=== PATIENT | male | born 1980 | race American Indian/Alaskan Native ===

== ENCOUNTER 2019-01-18 11:39 | Emergency (ER) | payer SELFPAY ==
[2019-01-18 11:59] VITALS: BP 118/69
--- NOTE | 2019-01-18 14:23 | Emergency Department Report ---
Minor Respiratory - HPI Chief Complaint: Upper Respiratory Infection Stated Complaint: HEAD COLD Time Seen by Provider: 01/18/19 14:19 Duration: 2 Days Pain Location: Throat Severity: moderate Minor Respiratory: Yes Sore Throat, Yes Able to Tolerate Fluids, Yes Cough, No Rhinorrhea, No Ear Pain, No Sick Contacts, No Hemoptysis, No Chest Pain, No Shortness of Breath, No Fever Other History: Patient has a history of Asthma and reports a flare-up that started two days ago. He only uses an inhaler for rescue, however he is currently out of an inhaler. He attributes the change of weather and dust to his exacerbation ED Review of Systems ROS: Stated complaint: HEAD COLD Other details as noted in HPI Constitutional: denies: chills, fever Eyes: denies: eye pain, eye discharge, vision change ENT: denies: ear pain, throat pain, hearing loss, epistaxis, congestion Respiratory: cough. denies: orthopnea, shortness of breath, SOB with exertion, SOB at rest, stridor, wheezing Cardiovascular: denies: chest pain, palpitations, dyspnea on exertion, orthopnea, edema, syncope, paroxysmal nocturnal dyspnea Endocrine: no symptoms reported Gastrointestinal: denies: abdominal pain, nausea, diarrhea Genitourinary: denies: urgency, dysuria Musculoskeletal: denies: back pain, joint swelling, arthralgia Skin: denies: rash, lesions Neurological: denies: headache, weakness, paresthesias Psychiatric: denies: anxiety, depression Hematological/Lymphatic: denies: easy bleeding, easy bruising ED Past Medical Hx - Past Medical History Previous Medical History?: Yes Hx Asthma: Yes - Surgical History Past Surgical History?: No - Social History Smoking Status: Never Smoker Substance Use Type: None - Medications Home Medications: Home Medications Medication Instructions Recorded Confirmed Last Taken Type ALBUTEROL Inhaler (OR & NICU) 1 puff IH QID #1 inha 01/18/19 Unknown Rx [Proair] Fexofenadine HCl [Rosa Isela Allergy] 180 mg PO DAILY #15 tablet 01/18/19 Unknown Rx guaiFENesin [Mucus Relief ER] 1,200 mg PO BID #20 tab.er.12h 01/18/19 Unknown Rx predniSONE [Deltasone] 50 mg PO QDAY #5 tab 01/18/19 Unknown Rx Minor Respiratory Exam - Exam General: Vital signs noted. No distress. Alert and acting appropriately. HEENT: Yes Moist Mucous Membranes, Yes Rhinorrhea, No Pharyngeal Erythema, No Pharyngeal Exudates, No Conjuctival Injection, No Frontal Tenderness, No Maxillary Tenderness Neck: No Adenopathy, No Supple Lungs: Yes Good Air Exchange, Yes Cough, No Wheezes, No Ronchi, No Stridor, No Labored Respirations, No Retractions, No Use of Accessory Muscles, No Other Abnormal Lung Sounds Heart: Yes Regular, No Murmur Skin: No Rash, No Edema Neurologic: Alert and oriented, no deficits. Musculoskeletal: Unremarkable. ED Course Vital Signs 01/18/19 11:58 Temperature 98.3 F Pulse Rate 83 Respiratory 20 Rate Blood Pressure 118/69 O2 Sat by Pulse 100 Oximetry ED Medical Decision Making - Lab Data Vital Signs 01/18/19 11:58 Temperature 98.3 F Pulse Rate 83 Respiratory 20 Rate Blood Pressure 118/69 O2 Sat by Pulse 100 Oximetry - Medical Decision Making During the course of ED, all other systems are unremarkable except for documentation in HPI. Patient was sent home with prescription for prednisone, Rosa Isela, Ventolin HFA and Mucinex, instructed to follow up with PCP next week, he verbalized understanding - Differential Diagnosis URI, Asthma Exacerbation Intermittent, Flu Critical care attestation.: If time is entered above; I have spent that time in minutes in the direct care of this critically ill patient, excluding procedure time. ED Disposition Clinical Impression: URI (upper respiratory infection) Qualifiers: URI type: unspecified URI Qualified Code(s): J06.9 - Acute upper respiratory infection, unspecified Asthma Qualifiers: Asthma severity: mild Asthma persistence: intermittent Asthma complication type: with acute exacerbation Qualified Code(s): J45.21 - Mild intermittent asthma with (acute) exacerbation Disposition: -01 TO HOME OR SELFCARE Is pt being admited?: No Does the pt Need Aspirin: No Condition: Stable Instructions: Asthma (ED), Upper Respiratory Infection (ED) Additional Instructions: Take medication as directed. Follow up with the selective referral given at discharge Prescriptions: Fexofenadine HCl [Rosa Isela Allergy] 180 mg PO DAILY #15 tablet predniSONE [Deltasone] 50 mg PO QDAY #5 tab guaiFENesin [Mucus Relief ER] 1,200 mg PO BID #20 tab.er.12h ALBUTEROL Inhaler (OR & NICU) [Proair] 1 punicolle QID #1 inha Referrals: [facility] [Outside] - 3-5 Days Forms: Work/School Release Form(ED) Time of Disposition: 14:26
== END 2019-01-18 14:50 | disposition home or self-care (01) ==
LOC: ED 11:39
DX: J45.909 Unspecified asthma, uncomplicated (principal); J06.9 Acute upper respiratory infection, unspecified
CPT/HCPCS: 99281

== ENCOUNTER 2019-05-07 12:56 | Emergency (ER) | payer SELFPAY ==
--- NOTE | 2019-05-07 13:33 | Event Note ---
ED Screening Note Date of service: 05/07/19 Time: 13:31 ED Screening Note: 38 y o male with hx of asthna presents with 1 week of cough, body aches and fever with no relief with otc meds pt states hes out of his astma inhaler and feels sob This initial assessment/diagnostic orders/clinical plan/treatment(s) is/are subject to change based on patients health status, clinical progression and re- assessment by fellow clinical providers in the ED. Further treatment and workup at subsequent clinical providers discretion. Patient/guardian urged not to elope from the ED as their condition may be serious if not clinically assessed and managed. Initial orders include: cxr breathing treatment ACC eval
--- NOTE | 2019-05-07 14:02 | XRay Report ---
CHEST 2 VIEWS INDICATION / CLINICAL INFORMATION: Cough and congestion. COMPARISON: None available. FINDINGS: SUPPORT DEVICES: None. HEART / MEDIASTINUM: There is mild prominence of the right atrium versus mild dextrocardia. Pulmonary vasculature is normal. The aorta is normal in caliber. LUNGS / PLEURA: No significant pulmonary or pleural abnormality. No pneumothorax. ADDITIONAL FINDINGS: No significant additional findings. IMPRESSION: 1. No acute findings. There is no evidence of pneumonia. 2. Mild dextrocardia versus mild right atrial prominence. Signer Name: Juanito Rushing MD Signed: 05/07/2019 1:57 PM Workstation Name: [id number]
--- NOTE | 2019-05-07 18:12 | Emergency Department Report ---
Minor Respiratory - [facility] Chief Complaint: Upper Respiratory Infection Stated Complaint: FLU SYM Time Seen by Provider: 05/07/19 18:11 Duration: 1 week Minor Respiratory: Yes Rhinorrhea (nasal congestion), Yes Cough, Yes Fever (102 last night) Other History: 38-year-old -Citizen Of [place] male presents to the emergency room complaining of chest congestion and headache and cold times one week. Patient reports that he had a temperature last night of 102. Patient reports he is taken TheraFlu. He admits to bodyaches nasal congestion. Patient reports he has a history of asthma and ran out of his inhaler. ED Review of Systems ROS: Stated complaint: FLU SYM Other details as noted in HPI ED Past Medical Hx - Past Medical History Hx Asthma: Yes - Surgical History Past Surgical History?: No - Social History Smoking Status: Never Smoker Substance Use Type: Marijuana - Medications Home Medications: Home Medications Medication Instructions Recorded Confirmed Last Taken Type Fexofenadine HCl [Rosa Isela Allergy] 180 mg PO DAILY #15 tablet 01/18/19 Unknown Rx guaiFENesin [Mucus Relief ER] 1,200 mg PO BID #20 tab.er.12h 01/18/19 Unknown Rx predniSONE [Deltasone] 50 mg PO QDAY #5 tab 01/18/19 Unknown Rx Albuterol INH(or & Nicu Only) 1 puff IH QID #1 inha 05/07/19 Unknown Rx [ProAir HFA Inhaler] Minor Respiratory Exam - Exam General: Vital signs noted. No distress. Alert and acting appropriately. HEENT: Yes Moist Mucous Membranes, No Pharyngeal Erythema, No Pharyngeal Exudates, No Rhinorrhea, No Conjuctival Injection, No Frontal Tenderness, No Maxillary Tenderness Ear: Neither TM Bulge, Neither TM Erythema, Neither EAC Pain, Neither EAC Discharge Neck: Yes Supple, No Adenopathy Lungs: Yes Good Air Exchange, No Wheezes, No Ronchi, No Stridor, No Cough, No Labored Respirations, No Retractions, No Use of Accessory Muscles, No Other Abnormal Lung Sounds Heart: Yes Regular, No Murmur Abdomen: Yes Normal Bowel Sounds, No Tenderness, No Peritoneal Signs Skin: No Rash, No Edema Neurologic: Alert and oriented, no deficits. Musculoskeletal: Unremarkable. ED Course Vital Signs 05/07/19 13:17 Temperature 98.3 F Pulse Rate 83 Respiratory 18 Rate Blood Pressure 117/78 O2 Sat by Pulse 96 Oximetry ED Medical Decision Making - Medical Decision Making 38-year-old -Citizen Of [place] male presents to the emergency room complaining of chest congestion and headache and cold times one week. Patient reports that he had a temperature last night of 102. Patient reports he is taken TheraFlu. He admits to bodyaches nasal congestion. Patient reports he has a history of asthma and ran out of his inhaler. Chest x-ray is negative. Physical examination is within normal limits no wheez ing rhonchi.. Patient will be given a prescription for Proventil and to follow up with a community provider. Critical care attestation.: If time is entered above; I have spent that time in minutes in the direct care of this critically ill patient, excluding procedure time. ED Disposition Clinical Impression: Viral syndrome Disposition: DC- TO HOME OR SELFCARE Is pt being admited?: No Does the pt Need Aspirin: No Condition: Stable Instructions: Viral Syndrome (ED) Additional Instructions: You can take [id number] Mucinex which is guaifenesin he can also take Claritin and Flonase and usually inhaler. Increase her fluid intake follow-up with community provider. Prescriptions: Albuterol INH(or & Nicu Only) [ProAir HFA Inhaler] 1 puff IH QID #1 inha Referrals: PRIMARY CARE, [Primary Care Provider] - 3-5 Days [facility] [Outside] - 3-5 Days [facility] [Outside] - 3-5 Days [facility] [Outside] - 3-5 Days
[2019-05-07 18:40] VITALS: BP 120/80
== END 2019-05-07 18:38 | disposition home or self-care (01) ==
LOC: ED 12:56
DX: B34.9 Viral infection, unspecified (principal); J45.909 Unspecified asthma, uncomplicated; F12.10 Cannabis abuse, uncomplicated; Z79.899 Other long term (current) drug therapy
CPT/HCPCS: 71046